=== PATIENT | female | born 1985 | race Two or more races ===

== ENCOUNTER 2016-03-17 10:12 | Emergency (ER) | payer BC ==
[~2016-03-17] VITALS: Ht 175.3 cm; Wt 59.0 kg
[2016-03-17 10:29] VITALS: BP 110/69
[2016-03-17] MEDS ORDERED: DiphenhydrAMINE 50mg/ml Inj IVP ONE (11:00)
[2016-03-17] MEDS ORDERED: Metoclopramide 10mg/2ml Inj IVP ONE (11:00)
[2016-03-17 11:35] LABS: APPEARANCE,URINE CLEAR; KETONES,URINE NEGATIVE (NEGATIVE); LEUKOCYTE ESTERASE ,URINE 3+ (NEGATIVE); NITRITE,URINE NEGATIVE (NEGATIVE); PH,URINE 8 (4.5-8.0); PROTEIN,URINE NEGATIVE (NEGATIVE); UROBILINOGEN,URINE NORMAL MG/DL (0.0-1.0)
[2016-03-17 11:44] LABS: BACTERIA,URINE FEW /HPF; RBC,URINE 0-2 /HPF (0 - 2); SQUAMOUS EPITHELIAL CELL,UR FEW /LPF (NONE/OCC)
[2016-03-17] MEDS ORDERED: IMITREX25 MG PO (12:04)
[2016-03-17 12:41] VITALS: BP 112/68
[2016-03-17 12:42] VITALS: BP 112/68
--- NOTE | 2016-03-17 12:55 | Emergency Room Report ---
History of Present Illness General Chief Complaint: Headache Source: Patient Present Illness HPI Patient is a 30-year-old female who presented after increased headache. The patient gradual onset of symptoms over the past 2 days. Patient had similar prior headaches. Patient states that she's had migraine since age 7. Patient describes her headache as unilateral throbbing sensation with associated photophobia. The patient states that she's had prior imaging studies as well as a spinal tap in this appears to been similar to her prior headaches. She denies any fever. She had recently had surgery for breast augmentation. She denies any complications from surgery pain to her incisions. Allergies: Coded Allergies: No Known Allergies (Unverified , 03/17/16) Patient History Past Medical History: see triage record Last Menstrual Period: 03/04/16 Now: No Reviewed Nursing Documentation: PMH: Agreed, PSxH: Agreed Nursing Documentation-PMH Past Medical History: No History, Except For Hx Asthma: Yes Review of Systems All Other Systems: negative except mentioned in HPI Physical Exam Vital Signs Date Time Temp Pulse Resp B/P Pulse Ox O2 Delivery O2 Flow Rate FiO2 03/17/16 10:25 98.4 77 14 110/69 100 Room Air General Appearance: well appearing, no apparent distress, alert, GCS 15 Head: normocephalic, atraumatic ENT: hearing grossly normal, normal voice Neck: full range of motion, supple Respiratory: no respiratory distress, speaking full sentences Gastrointestinal: normal inspection, normal bowel sounds, non tender, soft Musculoskeletal: normal inspection, no calf tenderness Neurologic: normal inspection, alert, oriented x3, responsive, solutions development analyst III-XII nml as tested, normal gait Psychiatric: mood/affect normal Skin: normal inspection, no rash Medical Decision Making Diagnostic Impression: Primary Impression: Headache ER Course Patient presented for headache.Differential diagnoses included but was not limited to skull fracture, subarachnoid hemorrhage, meningitis, aneurysm, mass lesion, intracranial hemorrhage. Patient's benign exam and does not appear to require any further imaging or laboratory testing at this time. A urinalysis showed no evidence of infection. Patient was given IV Benadryl and Reglan with improvement in her headache. Patient was given prescription for Imitrex. The patient is advised to follow up with primary care doctor in 1-2 days. Patient is advised to return if any worsening condition or if any changes in status that are concerning. Last Vital Signs Date Time Temp Pulse Resp B/P Pulse Ox O2 Delivery O2 Flow Rate FiO2 03/17/16 12:42 98.4 64 18 112/68 100 Room Air Status: improved Disposition: HOME, SELF-CARE Condition: Stable Scripts Sumatriptan Succinate (IMITREX) 25 Mg Tablet 25 MG PO Q6HR for For Headache, #14 TAB Prov: Yousif Lobo 03/17/16 Referrals: NON PHYSICIAN (PCP) Patient Instructions: Migraine Headache Yousif Lobo Mar 17, 2016 12:55
== END 2016-03-17 12:43 | disposition home or self-care (01) ==
LOC: EMR 11:38
DX: R51 Headache (principal); J45.909 Unspecified asthma, uncomplicated
CPT/HCPCS: 81003; 81025; 96374; 96375; 99284; J1200; J2765; J7040